=== PATIENT | female | born 1975 | race Caucasian/White ===

== ENCOUNTER 2022-12-17 23:49 | Emergency (ER) | payer OTHER ==
[2022-12-18] MEDS ORDERED: LACTATED RINGERS SOLUTION 1000 ML INFUS.BAG IV ONE (04:35)
[2022-12-18] MEDS ORDERED: ACETAMINOPHEN 1000 MG/100 ML BAG IVPB ONE (04:35)
[2022-12-18] MEDS ORDERED: ONDANSETRON 4 MG/2 ML VIAL ONE (04:38)
[2022-12-18] MEDS ORDERED: ONDANSETRON 4 MG/2 ML VIAL IVPUSH ONE (04:38)
[2022-12-18 05:15] LABS: BASO % 0.3 % (0-2.0); HEMATOCRIT 39.6 % (32.4-45.2); HEMOGLOBIN 13.1 GM/dL (10.7-15.3); LYMPH % 8.4 % (8-40); MCH 29.1 pg (25.7-33.7); MEAN CELL VOLUME 88.1 fl (80-96); MEAN PLT VOLUME 10.2 fl (7.5-11.1); MONO % 3.8 % (3.8-10.2); NEUT % 87.5 % (42.8-82.8); PLATELET COUNT 356 10^3/uL (134-434); RBC 4.49 M/mm3 (3.60-5.2); RDW 13.7 % (11.6-15.6); WHITE BLOOD COUNT 11.8 K/mm3 (4.0-10.0)
[2022-12-18 05:41] LABS: POTASSIUM 4.5 mmol/L (3.5-5.1)
[2022-12-18 05:43] LABS: CALCIUM 9.5 mg/dL (8.5-10.1)
[2022-12-18 05:44] LABS: ALBUMIN 3.6 g/dl (3.4-5.0)
[2022-12-18 05:47] LABS: CREATININE 1.2 mg/dL (0.55-1.3)
[2022-12-18 05:48] LABS: EPI CELLS >36 /uL (0-25.1); HYALINE CASTS 11 /uL (0-3.1); PH,URINE 5.5 (5.0-8.0); URINE APPEARANCE CLOUDY; URINE BACTERIA 8093 /uL (0-1359); URINE BILIRUBIN NEGATIVE (NEGATIVE); URINE COLOR YELLOW; URINE GLUCOSE (UA) NEGATIVE (NEGATIVE); URINE KETONE 1+ (NEGATIVE); URINE LEUK ESTERASE NEGATIVE (NEGATIVE); URINE NITRITE NEGATIVE (NEGATIVE); URINE PROTEIN TRACE (NEGATIVE); URINE RBC 88 /uL (0-23.9)
[2022-12-18 05:48] LABS: BILIRUBIN,TOTAL 0.2 mg/dL (0.2-1); TOT PROT 8.1 g/dl (6.4-8.2)
[2022-12-18 07:30] VITALS: TEMP 99.5
[2022-12-18] MEDS ORDERED: KETOROLAC TROMETHAMINE 30 MG/1 ML VIAL IM ONE (09:10)
[2022-12-18] MEDS ORDERED: KETOROLAC TROMETHAMINE 30 MG/1 ML VIAL ONE (09:38)
[2022-12-18 10:39] LABS: EPI CELLS 17 /uL (0-25.1); HYALINE CASTS 0 /uL (0-3.1); URINE APPEARANCE CLEAR; URINE BACTERIA 955 /uL (0-1359); URINE BILIRUBIN NEGATIVE (NEGATIVE); URINE COLOR YELLOW; URINE GLUCOSE (UA) NEGATIVE (NEGATIVE); URINE KETONE NEGATIVE (NEGATIVE); URINE LEUK ESTERASE NEGATIVE (NEGATIVE); URINE NITRITE NEGATIVE (NEGATIVE); URINE PROTEIN NEGATIVE (NEGATIVE); URINE RBC 64 /uL (0-23.9); URINE WBC 30 /uL (0-25.8)
[2022-12-18 10:53] LABS: URINE WBC 385.2 /uL (0-25.8)
[2022-12-18] MEDS ORDERED: CEPHALEXIN MONOHYDRATE 500 MG CAPSULE (UD) PO ONE (11:10)
[2022-12-18] MEDS ORDERED: CEPHALEXIN MONOHYDRATE 500 MG CAPSULE (UD) ONE (12:16)
[2022-12-18 12:19] VITALS: BP 119/68; PULSE 82; RESP 20
== END 2022-12-18 12:19 | disposition home or self-care (01) ==
LOC: JER 23:49
PROC: 3E033NZ Introduction of Analgesics, Hypnotics, Sedatives into Peripheral Vein, Percutaneous Approach (ICD-10-PCS; principal; 2022-12-18)
PROC: 3E033GC Introduction of Other Therapeutic Substance into Peripheral Vein, Percutaneous Approach (ICD-10-PCS; 2022-12-18)
PROC: 3E0233Z Introduction of Anti-inflammatory into Muscle, Percutaneous Approach (ICD-10-PCS; 2022-12-18)
DX: R11.2 Nausea with vomiting, unspecified (principal); R10.33 Periumbilical pain; R35.0 Frequency of micturition; R68.2 Dry mouth, unspecified
CPT/HCPCS: 36415; 74177-TC; 80053; 81003; 84703; 85025; 87086; 87186; 99285-25; Q9967